=== PATIENT | female | born 1990 | race Caucasian/White ===

== ENCOUNTER 2020-09-28 22:00 | Emergency (ER) | payer OTHER ==
[~2020-09-28] VITALS: Ht 167.6 cm; Wt 61.2 kg
[2020-09-28 22:02] VITALS: BP 132/92
--- NOTE | 2020-09-28 22:31 | NUR ---
PT AAOX4. AMBULATORY WITH STEADY GAIT. C/O ANXIETY AND TREMORS S/P SMOKING [employer]. FRIEND WAS OUTSIDE WAITING FOR PT TO BE DISCHARGED. PT DENIED SI AND HI. DISCHARGED HOME.
== END 2020-09-28 22:32 | disposition home or self-care (01) ==
LOC: ER 22:05
DX: F19.90 Other psychoactive substance use, unspecified, uncomplicated (principal); I10 Essential (primary) hypertension